=== PATIENT | male | born 2000 | race Hispanic/Latino ===

== ENCOUNTER 2022-04-29 07:57 | Emergency (ER) | payer OTHER ==
[2022-04-29 09:55] LABS: Bacteria/HPF None Seen HPF (None Seen); Bilirubin Negative (Negative); Blood, Urine Trace (Negative); Clarity Clear (Clear); Glucose, Urine (Dipstick) Normal (Negative); Ketone, Urine Negative (Negative); Leukocyte Negative Leu/uL (Negative); Nitrite Negative (Negative); Protein, Urine (Dipstick) Negative (Neg-Trace); RBC/HPF 0-3 HPF (0-3); Specific Gravity, Urine 1.027 (1.002-1.036); Squamous Epithelial None Seen HPF (0-3); Urobilinogen Normal mg/dL (Less than 2); WBC/HPF 0-3 HPF (0-3)
== END 2022-04-29 10:29 | disposition home or self-care (01) ==
LOC: ERS 07:57
DX: N48.1 Balanitis (principal); F17.290 Nicotine dependence, other tobacco product, uncomplicated
CPT/HCPCS: 81003; 81015; 99284

== ENCOUNTER 2023-01-12 10:00 | Emergency (ER) | payer OTHER, SELFPAY | END 2023-01-12 10:23 | disposition home or self-care (01) | LOC: ERS 10:00 | DX: S39.012A Strain of muscle, fascia and tendon of lower back, initial encounter (principal); F17.290 Nicotine dependence, other tobacco product, uncomplicated; X50.9XXA Other and unspecified overexertion or strenuous movements or postures, initial encounter | CPT/HCPCS: 99283 ==

== ENCOUNTER 2023-05-02 16:33 | Outpatient (CLI) | payer SELFPAY | END 2023-05-02 16:34 | disposition home or self-care (01) | LOC: RAD 16:33 | PROVIDERS: ATTEND Student in an Organized Health Care Education/Training Program | DX: A15.9 Respiratory tuberculosis unspecified (principal) | CPT/HCPCS: 71046 ==